=== PATIENT | female | born 1940 | race Caucasian/White ===

== ENCOUNTER 2018-08-18 08:47 | Inpatient (IN) ==
--- NOTE | 2018-08-18 09:16 | Emergency Department Note ---
History of Present Illness General Chief complaint: Head Injury, Minor Stated complaint: FELL AND HIT HEAD LAST WEEK/DOCTOR NGCO CT SCAN Time Seen by Provider: 08/18/18 09:05 History of Present Illness Maximum Pain Intensity: 0 This is a 77-year-old female that presents to the emergency department via private vehicle with complaints of "fell and hit head, last week, Dr. heredia CT scan". The patient notes that one week ago Thursday she was attempting to sit on her bed when she notes that she fell and struck her head against a dresser. She notes that there was some bleeding and felt a little disoriented. She went to see on Thursday and they recommended that she go to the emergency department for a CT scan of her head. She notes that they as well as her have been noting that her facial expressions have not been normal for her and she does not seem quite herself. at bedside verifies the story. She denies any history of CVA or clots. No aspirin use or anticoagulants. She does not feel weak. She does not note any speech troubles or weakness Home Medications Home Medications Medication Instructions Recorded Confirmed Type celecoxib 200 mg PO DAILY 08/18/18 08/18/18 History lorazepam 0.25 mg PO HS 08/18/18 08/18/18 History metoprolol succinate 25 mg PO BID 08/18/18 08/18/18 History omeprazole 40 mg PO DAILY 08/18/18 08/18/18 History simvastatin 10 mg PO DAILY 08/18/18 08/18/18 History venlafaxine 75 mg PO DAILY 08/18/18 08/18/18 History Allergies Allergy/AdvReac Type Severity Reaction Status Date / Time alcohol Allergy Unknown Unverified 08/18/18 10:16 meperidine [From Demerol] Allergy Unknown Unverified 08/18/18 10:16 ondansetron [From Zofran] Allergy Hives Unverified 08/18/18 10:16 Past Med/Surg History Medical History HTN (hypertension) (Chronic) HLD (hyperlipidemia) (Chronic) History of breast cancer (Chronic) History of colon cancer (Chronic) History of rectal cancer (Chronic) Surgical History History of resection of rectum (Chronic) History of colostomy (Chronic) History of colectomy (Chronic) History of left mastectomy (Chronic) Family History Mother Leukemia Father Muscle disease Brother Hx of CABG Coronary heart disease Social History Communication Ability: Effective Human Resources Executive Assistant Required: Yes Beliefs That Will Affect Care: None marital status: Current Living Situation: Spouse current occupational status: retired Other Information That Helps Us Care for You: Yes (Rectal, colon, breast cancer) Feels Safe at Home: Yes Smoking Status: Never smoker Hx Alcohol Use: No Hx Substance Use: No Review of Systems A total of 10 systems reviewed and were otherwise negative Physical Exam Vital Signs Vital Signs - 24 hr 08/18/18 08:51 08/18/18 10:16 08/18/18 12:00 Temperature 36.4 C L Temperature Source Oral Sepsis Recent Fever Within 48 Hours No Sepsis New/Unexplained Change in Mental Status No Sepsis Action Taken by Nursing No Action Required Pulse Rate 73 Pulse Rate [Finger] 70 70 Respiratory Rate 18 19 18 Respiratory Depth Normal Blood Pressure 157/97 H Blood Pressure [Right Arm] 162/95 H 162/95 H Blood Pressure Mean 117 Blood Pressure Mean [Right Arm] 117 117 Pulse Oximetry 97 96 96 Oxygen Delivery Method Room Air Room Air Room Air 08/18/18 14:01 08/18/18 14:22 Temperature Temperature Source Sepsis Recent Fever Within 48 Hours Sepsis New/Unexplained Change in Mental Status Sepsis Action Taken by Nursing Pulse Rate Pulse Rate [Finger] 73 Respiratory Rate 19 Respiratory Depth Blood Pressure Blood Pressure [Right Arm] 184/103 H 185/118 H Blood Pressure Mean Blood Pressure Mean [Right Arm] 130 140 Pulse Oximetry 97 Oxygen Delivery Method Room Air VITAL SIGNS - Vital signs and nursing notes were reviewed. Hypertensive otherwise stable. GENERAL - 77-year-old female appearing her stated age who is in no acute distress. Communicates well with provider and answers questions appropriately. SKIN - Without rashes. HEAD - NC/AT. EYES - PERRL with EOMI bilaterally. Sclera anicteric. EARS - No deformities of external structures noted on gross examination bilaterally. External auditory canals without discharge or otorrhea. Tympanic membranes pearly agustin without retraction or bulging. No fluid or purulent material visualized behind the TM. Handle of malleus, umbo, cone of light, pars tensa/flaccid all easily visualized. NOSE - Midline and without cyanosis. No epistaxis or purulent drainage noted. Septum midline without deviation or septal hematoma noted. MOUTH/OROPHARYNX - Without perioral cyanosis. Buccal mucosa pink and moist and without leukoplakia. Tongue midline with equal elevation of palate bilaterally. No tonsillar hypertrophy, erythema, or exudates noted. Fair dentition noted. NECK - Neck with FROM. Supple to palpation. No lymphadenopathy noted. No nuchal rigidity. LUNGS - Chest wall symmetric without accessory muscle use, intercostals retractions, or central cyanosis. Normal vesicular breath sounds CTA B/L. No whe ezes, rales, or rhonchi appreciated. CARDIAC - RRR with S1/S2. No murmur, rubs, or gallops appreciated. ABDOMEN - Abdominal contour normal without pulsations or visible masses. BS normoactive all four quadrants. No tenderness, palpable masses, hepatosplenomegaly, or ascites noted. EXTREMITIES - No clubbing or peripheral cyanosis. No pretibial edema present. +5/5 strength noted in UE/LE bilaterally. NEUROLOGIC - Cranial nerves II through XII grossly intact. Sensory intact to light touch throughout. Patellar reflexes +2/4. PSYCH - A&Ox3 and cooperates fully with examiner. Pt is very pleasant and interacts well with examiner. Medical Decision Making Laboratory Data Result diagrams: 08/18/18 09:30 08/18/18 09:30 Lab Results 08/18/18 08/18/18 08/18/18 Range/Units 09:30 09:30 09:30 WBC 5.74 (4.8-10.8) K/uL RBC 4.53 (4.2-5.4) M/uL Hgb 13.4 (12.0-16.0) g/dL Hct 39.1 (37-47) % MCV 86.3 (80-100) fL MCH 29.6 (25-34) pg MCHC 34.3 (32-36) g/dL RDW Std Deviation 41.2 (36.4-46.3) fL RDW Coeff of Santiago 13.0 (11.5-14.5) % Plt Count 189 (130-400) K/uL MPV 9.5 (7.4-10.4) fL Immature Gran % (Auto) 0.3 % Neut % (Auto) 52.7 % Lymph % (Auto) 37.3 % [place] % (Auto) 7.1 % Eos % (Auto) 2.1 % Baso % (Auto) 0.5 % Immature Gran # (Auto) 0.02 (0.00-0.02) K/uL Neut # (Auto) 3.02 (1.4-6.5) K/uL Lymph # (Auto) 2.14 (1.2-3.4) K/uL [place] # (Auto) 0.41 (0.11-0.59) K/uL Eos # (Auto) 0.12 (0-0.5) K/uL Baso # (Auto) 0.03 (0-0.2) K/uL PT 10.3 (9.0-12.0) Seconds INR 1.0 (0.9-1.1) APTT 23.1 (21.0-31.0) Seconds PTT Ratio 0.9 Sodium 140 (136-145) mmol/L Potassium 4.1 (3.5-5.1) mmol/L Chloride 107 (98-107) mmol/L Carbon Dioxide 29 (21-32) mmol/L Anion Gap 4.0 (3-11) BUN 28 H (7-18) mg/dl Creatinine 1.15 (0.6-1.2) mg/dl Est Cr Clr Drug Dosing 38.1 ml/min Est GFR ( Amer) 53.5 Est GFR (Non-Af Amer) 46.2 BUN/Creatinine Ratio 24.4 H (10-20) Glucose 108 H (70-99) mg/dl Calcium 8.6 (8.5-10.1) mg/dl Magnesium 2.1 (1.8-2.4) mg/dl Total Bilirubin 0.3 (0.2-1) mg/dl AST 15 (15-37) U/L ALT 20 (12-78) U/L Alkaline Phosphatase 63 (45-117) U/L Troponin I < 0.015 (0-0.045) ng/ml Total Protein 7.8 (6.4-8.2) gm/dl Albumin 3.7 (3.4-5.0) gm/dl Globulin 4.1 H (2.5-4.0) gm/dl Albumin/Globulin Ratio 0.9 (0.9-2) Imaging Data Radiologist's Impression: CT head/brain wo con CLINICAL HISTORY: 77 years-old Female with Fall, head trauma. ?Facial expression change. Acute post traumatic head injury TECHNIQUE: Multiple axial CT images of the head were obtained without contrast. A dose lowering technique was utilized adhering to the principles of ALARA. CT DOSE: 537.48 mGy.cm COMPARISON: None. FINDINGS: No acute intracranial hemorrhage, midline shift, intracranial mass, hydrocephalus, territorial ischemia or abnormal extra-axial collection. Age- related involutional changes with ex vacuo ventriculomegaly. Moderate white matter hypodensities are suggestive of chronic microvascular ischemic changes. Cerebral vascular calcifications are noted. Ill-defined 7 mm hypodensity about the cramer radiata about the left frontal lobe. The calvarium is intact. The paranasal sinuses, mastoid air cells, and middle ear cavities are clear. IMPRESSION: 1. No acute intracranial hemorrhage, midline shift or territorial infarct. 2. Age-related involutional changes with chronic microvascular ischemic changes. Ill-defined periventricular white matter hypodensities are also likely secondary to chronic microvascular ischemic changes. Small subcentimeter age-indeterminate lacunar infarctions considered less likely however would be difficult to exclude. Correlate with prior imaging. The above report was generated using voice recognition software. It may contain grammatical, syntax or spelling errors. Electronically signed by: Jesu Pool M.D. 08/18/2018 10:27 AM MDM Narrative Patient was seen and evaluated as above in room A04. Review was performed of nursing notes and vital signs. After obtaining a thorough history and physical examination the above work up was performed. She presents to us today status post fall that occurred about a week ago. Since that time she has exhibited behavior which the and the doctor who evaluated her 2 days ago noted were abnormal. It appears that this was facial expression. The is not able to pinpoint exactly what it appears that is different but notes that she does not seem herself. On examination there are no deficits and she appears well. IV access was established. There is no leukocytosis or concerning anemia. No emergent metabolic process. She does appear to be slightly dehydrated with a creatinine of 1.15 and BUN at 28. Patient's troponin is negative. A bedside EKG was performed and reveals normal sinus rhythm, rate of 69 bpm. There is no evidence of ID on this examination. A CT scan of the head was performed with results as above. Although the patient's symptoms could certainly be from that of a concussion from striking her head there are questionable age-indeterminate lacunar infarcts possibly on the CT scan. Given the patient's symptoms, CT findings at this time benefit versus risk of inpatient versus outpatient management was discussed. The patient initially noted she would like to go home but did ask that I talk to her family doctor, who notes she is her cancer doctor to see if the testing could be done in the outpatient setting if they feel comfortable doing so. I then spoke with Dr. Grider. I expressed how I felt that although at this time there is no solid evidence she experienced a stroke or TIA that given her presentation and findings it may be reasonable for her to stay. He was in agreement. We discussed how although the testing could be done in the outpatient setting, there could be significant delays in obtaining this whereas this could be done in the inpatient setting in a more timely manner which given the patient's symptoms and presentation would be of great benefit. This was expressed to the patient and she notes that she would like to be admitted. I believe this is reasonable. I discussed this with the hospitalist team. Case was discussed with the attending physician. I attest that I have personally reviewed the patient medication list. I attest that I have reviewed the patient's blood pressure and it was found to be elevated, and she will be admitted for further evaluation and management of her presenting symptoms. GCS: 15 In the evaluation and treatment of this patient, the following differential diagnoses were considered: Concussion, Contrecoup Injury, Brain Tumor, Depression, Encephalitis, Hypothyroidism, Meningitis, CVA, TIA, Migraine, Cluster Headache, Intracranial Abnormality, Intracranial Hemorrhage, Subdural Hematoma, Subarachnoid Hemorrhage, Hydrocephalus, among others. Impression & Plan Closed head injury, Fall, Abnormal CT of the head Discharge Plan Visit Data *Final* Discharge Date/Time: 08/18/18 14:40 Chief Complaint: Head Injury, Minor Stated Complaint: FELL AND HIT HEAD LAST WEEK/DOCTOR WANTS CT SCAN ED Provider: Aubrey Santiago ED Midlevel Provider: Bamat,Popeye W Discharge Problem: Closed head injury, Fall, Abnormal CT of the head Patient Disposition: Admitted As Inpatient Condition: Good Discharge Instructions Interventions: ED Discharge Assessment Last Done: 08/18/18 14:40
[2018-08-18 09:43] LABS: Basophils # (auto) 0.03 K/uL (0-0.2); Basophils % (auto) 0.5 %; Eosinophils # (auto) 0.12 K/uL (0-0.5); Eosinophils % (auto) 2.1 %; Hematocrit (blood only) 39.1 % (37-47); Hemoglobin 13.4 g/dL (12.0-16.0); Immature Granulocytes # (auto) 0.02 K/uL (0.00-0.02); Immature Granulocytes % (auto) 0.3 %; Lymphocytes # (auto) 2.14 K/uL (1.2-3.4); Lymphocytes % (auto) 37.3 %; Mean Corpuscular Hgb Conc 34.3 g/dL (32-36); Mean Corpuscular Volume 86.3 fL (80-100); Mean Platelet Volume 9.5 fL (7.4-10.4); Monocytes # (auto) 0.41 K/uL (0.11-0.59); Monocytes % (auto) 7.1 %; Neutrophils # (auto) 3.02 K/uL (1.4-6.5); Neutrophils % (auto) 52.7 %; Platelet Count 189 K/uL (130-400); RDW Standard Deviation 41.2 fL (36.4-46.3); Red Blood Count 4.53 M/uL (4.2-5.4); White Blood Count 5.74 K/uL (4.8-10.8)
[2018-08-18 09:58] LABS: Partial Thromboplastin Ratio 0.9; Partial Thromboplastin Time 23.1 Seconds (21.0-31.0); Prothrombin Time 10.3 Seconds (9.0-12.0)
[2018-08-18 10:04] LABS: Alanine Aminotransferase 20 U/L (12-78); Albumin Level 3.7 gm/dl (3.4-5.0); Aspartate Aminotransferase 15 U/L (15-37); BUN Creatinine Ratio 24.4 (10-20); Blood Urea Nitrogen 28 mg/dl (7-18); Calcium 8.6 mg/dl (8.5-10.1); Carbon Dioxide 29 mmol/L (21-32); Chloride 107 mmol/L (98-107); Creatinine Clr Calc Pharmacy 38.1 ml/min; Est GFR (African American) 53.5; Est GFR (Non-African American) 46.2; Glucose 108 mg/dl (70-99); Magnesium 2.1 mg/dl (1.8-2.4); Potassium 4.1 mmol/L (3.5-5.1); Sodium 140 mmol/L (136-145)
[2018-08-18 10:09] LABS: Albumin Globulin Ratio 0.9 (0.9-2); Alkaline Phosphatase 63 U/L (45-117); Bilirubin,Total 0.3 mg/dl (0.2-1); Globulin 4.1 gm/dl (2.5-4.0); Total Protein 7.8 gm/dl (6.4-8.2); Troponin I < 0.015 ng/ml (0-0.045)
--- NOTE | 2018-08-18 10:28 | CT Scan Report ---
CT head/brain wo con CLINICAL HISTORY: 77 years-old Female with Fall, head trauma. ?Facial expression change. Acute post traumatic head injury TECHNIQUE: Multiple axial CT images of the head were obtained without contrast. A dose lowering tech nique was utilized adhering to the principles of ALARA. CT DOSE: 537.48 mGy.cm COMPARISON: None. FINDINGS: No acute intracranial hemorrhage, midline shift, intracranial mass, hydrocephalus, territorial ischem ia or abnormal extra-axial collection. Age-related involutional changes with ex vacuo ventriculomegal y. Moderate white matter hypodensities are suggestive of chronic microvascular ischemic changes. Cere bral vascular calcifications are noted. Ill-defined 7 mm hypodensity about the cramer radiata about t he left frontal lobe. The calvarium is intact. The paranasal sinuses, mastoid air cells, and middle ear cavities are clear . IMPRESSION: 1. No acute intracranial hemorrhage, midline shift or territorial infarct. 2. Age-related involutional changes with chronic microvascular ischemic changes. Ill-defined perivent ricular white matter hypodensities are also likely secondary to chronic microvascular ischemic change s. Small subcentimeter age-indeterminate lacunar infarctions considered less likely however would be difficult to exclude. Correlate with prior imaging. The above report was generated using voice recognition software. It may contain grammatical, syntax o r spelling errors. Electronically signed by: Jesu Pool M.D. 08/18/2018 10:27 AM
--- NOTE | 2018-08-18 12:15 | Emergency Department Note ---
ED Visit Note Patient was seen by our PA/SEAFOOD PROCESS WORKER. I was involved in the patient's care and did evaluate the patient myself. I was involved in the care throughout the ER stay. The patient presents with concern for head trauma, she has had a slight change in mentation. Workup here showed some older strokelike findings on CT, laboratory testing was unrevealing. The patient did not have any focal neurologic deficits. A hospital stay for further workup was suggested. The patient is considering hospitalization versus going home and seeing her doctors office. She understands that going home is slightly more risky, she feels comfortable though that her family doctors office can perform all the needed test in a timely fashion. We await her decision. .
--- NOTE | 2018-08-18 14:16 | History & Physical Report ---
Date of Service August 18, 2018 Assessment & Plan (1) Fall: (2) Recent head trauma: This is a 77-year-old female who has a significant past medical history of HTN, HLD, depression, anxiety, history of left breast CA status post simple mastectomy, history of colon CA status post colectomy and colostomy, history of rectosigmoid CA status post resection who presents to [facility] status post mechanical fall 10 days ago. She did not lose consciousness or pass out. Denies headache, n/v, change in vision, phono/photophobia. CT head done in ED revealed: Age-related involutional changes with chronic microvascular ischemic changes. Ill-defined periventricular white matter hypodensities are also likely secondary to chronic microvascular ischemic changes. Small subcentimeter age-indeterminate lacunar infarctions considered less likely however would be difficult to exclude. Ill-defined 7 mm hypodensity about the cramer radiata about the left frontal lobe. Correlate with prior imaging. CT scan reviewed from 12/2016 which also revealed age related white mater changes similar to above but ill defined density -admit to med/surg telemetry for further imaging -MRI w and w/o contrast to eval for ill defined hypodensity -consult neurology for further evaluation -PT/OT -lipid panel, a1c in a.m. (3) HTN (hypertension): -continue metoprolol, blood pressure elevated in ED (4) HLD (hyperlipidemia): -continue statin (5) Depression: -continue effexor (6) DVT prophylaxis: -SCDs Disposition: D/C to home when able Follow up: PCP Dr. Grider of [place] upon discharge Pt was seen and examined in collaboration with Dr. Licona, please see addendum Starting 08/19/18 pt will be under the care of Dr. Vasquez History of Present Illness Chief Complaint: S/p Mechanical and hit head x 10 days ago. Primary Care Provider: Dennis Grider This is a 77-year-old female who has a significant past medical history of HTN, HLD, depression, anxiety, history of left breast CA status post simple mastectomy, history of colon CA status post colectomy and colostomy, history of rectosigmoid CA status post resection who presents to [facility] status post mechanical fall 10 days ago. is at bedside. Patient states she was going to get in bed, rolled over and fell out of bed hitting head on corner of a dresser. Patient did have minor laceration to head. She was able to get up from fall with the help of her . She denies any falls in previous years or instability. Denies loss of consciousness or passing out. Am bulates without assist device and walks 1-2 miles with 3 times a week. She currently denies any headache, lightheadedness, dizziness, syncope, change in vision, change in hearing, photophobia or photophobia, nausea, vomiting, diarrhea, change in bowel or urinary habits. Further denies any chest pain or shortness of breath, palpitations. Appetite has been normal. She was essentially brought to ED and recommendation of provider secondary to feeling like she has been, "foggy." While in ED CT scan of head was performed which ruled out any acute hemorrhage, did reveal age related involutional changes, chronic small vessel disease, 7 mm hypodensity in left frontal lobe. Given her age and history of cancer it was recommended she be admitted for further imaging and evaluation. Allergies Allergy/AdvReac Type Severity Reaction Status Date / Time alcohol Allergy Unknown Unverified 08/18/18 10:16 meperidine [From Demerol] Allergy Unknown Unverified 08/18/18 10:16 ondansetron [From Zofran] Allergy Hives Unverified 08/18/18 10:16 Home Medications Home Medications Medication Instructions Recorded Confirmed Type celecoxib 200 mg PO DAILY 08/18/18 08/18/18 History lorazepam 0.25 mg PO HS 08/18/18 08/18/18 History metoprolol succinate 25 mg PO BID 08/18/18 08/18/18 History omeprazole 40 mg PO DAILY 08/18/18 08/18/18 History simvastatin 10 mg PO DAILY 08/18/18 08/18/18 History venlafaxine 75 mg PO DAILY 08/18/18 08/18/18 History Past Med/Surg History Medical History HTN (hypertension) (Chronic) HLD (hyperlipidemia) (Chronic) History of breast cancer (Chronic) History of colon cancer (Chronic) History of rectal cancer (Chronic) Surgical History History of resection of rectum (Chronic) History of colostomy (Chronic) History of colectomy (Chronic) History of left mastectomy (Chronic) Family History Mother Leukemia Father Muscle disease Brother Hx of CABG Coronary heart disease Social History Communication Ability: Effective Order Analyst Required: Yes Beliefs That Will Affect Care: None marital status: Current Living Situation: Spouse current occupational status: retired Other Information That Helps Us Care for You: Yes (Rectal, colon, breast cancer) Feels Safe at Home: Yes Smoking Status: Never smoker Hx Alcohol Use: No Hx Substance Use: No Review of Systems All systems reviewed & are unremarkable except as noted in HPI & below Physical Exam Vital Signs (Past 24 Hours): Last Vital Signs Temp 36.4 C L 08/18/18 08:51 Pulse 73 08/18/18 14:01 Resp 19 08/18/18 14:01 BP 184/103 H 08/18/18 14:01 Pulse Ox 97 08/18/18 14:01 Physical Exam: Gen: WD/WN, F, NAD, sitting up in bed, pleasant, conversing easily Head: Normocephalic, Atraumatic Eyes: Sclera normal, no conjunctival injection, PERRLA, EOMI ENT: Gross hearing intact, normal pharynx, mucous membranes moist Neck: supple, no adenopathy, No JVD, no bruit, Resp: Clear to auscultation b/l, no wheeze, rales, rhonchi. Normal insp/exp effort, no accessory muscle use CV: Regular rate, regular rhythm, no murmur, rub, gallop, or ectopy Abd: +BS x 4, soft, nontender, nondistended Musculoskeletal: moves extremities active rom x 4, strength intact, good middle school history teacher strength Extremities: No edema bilaterally Skin: warm, moist, no rash, negative turgor, cap refill < 2sec Neuro: Alert and oriented x 3, speech normal, good mood/affect, cran nerve 2-12 intact grossly : deferred Results & Data Laboratory Results 08/18/18 08/18/18 08/18/18 Range/Units 09:30 09:30 09:30 WBC 5.74 (4.8-10.8) K/uL RBC 4.53 (4.2-5.4) M/uL Hgb 13.4 (12.0-16.0) g/dL Hct 39.1 (37-47) % MCV 86.3 (80-100) fL MCH 29.6 (25-34) pg MCHC 34.3 (32-36) g/dL RDW Std Deviation 41.2 (36.4-46.3) fL RDW Coeff of Santiago 13.0 (11.5-14.5) % Plt Count 189 (130-400) K/uL MPV 9.5 (7.4-10.4) fL Immature Gran % (Auto) 0.3 % Neut % (Auto) 52.7 % Lymph % (Auto) 37.3 % Sanders % (Auto) 7.1 % Eos % (Auto) 2.1 % Baso % (Auto) 0.5 % Immature Gran # (Auto) 0.02 (0.00-0.02) K/uL Neut # (Auto) 3.02 (1.4-6.5) K/uL Lymph # (Auto) 2.14 (1.2-3.4) K/uL Sanders # (Auto) 0.41 (0.11-0.59) K/uL Eos # (Auto) 0.12 (0-0.5) K/uL Baso # (Auto) 0.03 (0-0.2) K/uL PT 10.3 (9.0-12.0) Seconds INR 1.0 (0.9-1.1) APTT 23.1 (21.0-31.0) Seconds PTT Ratio 0.9 Sodium 140 (136-145) mmol/L Potassium 4.1 (3.5-5.1) mmol/L Chloride 107 (98-107) mmol/L Carbon Dioxide 29 (21-32) mmol/L Anion Gap 4.0 (3-11) BUN 28 H (7-18) mg/dl Creatinine 1.15 (0.6-1.2) mg/dl Est Cr Clr Drug Dosing 38.1 ml/min Est GFR ( Amer) 53.5 Est GFR (Non-Af Amer) 46.2 BUN/Creatinine Ratio 24.4 H (10-20) Glucose 108 H (70-99) mg/dl Calcium 8.6 (8.5-10.1) mg/dl Magnesium 2.1 (1.8-2.4) mg/dl Total Bilirubin 0.3 (0.2-1) mg/dl AST 15 (15-37) U/L ALT 20 (12-78) U/L Alkaline Phosphatase 63 (45-117) U/L Troponin I < 0.015 (0-0.045) ng/ml Total Protein 7.8 (6.4-8.2) gm/dl Albumin 3.7 (3.4-5.0) gm/dl Globulin 4.1 H (2.5-4.0) gm/dl Albumin/Globulin Ratio 0.9 (0.9-2) Diagnostic Findings Head CT: FINDINGS: No acute intracranial hemorrhage, midline shift, intracranial mass, hydrocephalus, territorial ischemia or abnormal extra-axial collection. Age- related involutional changes with ex vacuo ventriculomegaly. Moderate white matter hypodensities are suggestive of chronic microvascular ischemic changes. Cerebral vascular calcifications are noted. Ill-defined 7 mm hypodensity about the cramer radiata about the left frontal lobe. The calvarium is intact. The paranasal sinuses, mastoid air cells, and middle ear cavities are clear. IMPRESSION: 1. No acute intracranial hemorrhage, midline shift or territorial infarct. 2. Age-related involutional changes with chronic microvascular ischemic changes. Ill-defined periventricular white matter hypodensities are also likely secondary to chronic microvascular ischemic changes. Small subcentimeter age-indeterminate lacunar infarctions considered less likely however would be difficult to exclude. Correlate with prior imaging. Code Status & VTE Plan Code Status Full Code VTE Prophylaxis Plan VTE Prophylaxis will be ordered: Yes Supervising Physician Co-Signing Physician Notes I have seen and examined the patient with physician doctor assistant and agree with the assessment and plan and would like to add that patient with recent head trauma x 1 week. no current focal neurological symptoms on exam but CT head abnormal and in particular of a Ill-defined 7 mm hypodensity about the cramer radiata about the left frontal lobe patient has history of cancer and agree with neurology recommendation to obtain MRI of the brain with and without contrast optimize HLD, HTN LDL <70 ZIO as outpatient if there is evidence of lacunar infarct Patient was admitted by Dr. Licona and physician doctor assistant on 08/18/18. But Neur ology suggested the possibility of doing carotid ultrasound and TTE but would defer to the next hospitalist who will see the patient starting on 08/19/18 depending on the MRI results of the brain. My hospitalist colleague will be Dr. Mohan
[2018-08-18] MEDS ORDERED: ALUMINUM/MAGNESIUM SUSP 30 ML UDC PO PRN (15:48)
[2018-08-18] MEDS ORDERED: MAGNESIUM HYDROXIDE SUSP 30 ML UDC PO PRN (15:48)
[2018-08-18] MEDS ORDERED: POLYETHYLENE (MIRALAX) 17 GM PACK PO PRN (15:48)
[2018-08-18] MEDS ORDERED: ACETAMINOPHEN 325 MG TAB PO PRN (15:48)
--- NOTE | 2018-08-18 19:04 | Neurology Consultation ---
Date of Consultation August 18, 2018 Assessment & Plan (1) Abnormal CT of the head: 1. MRI brain with and without if renal function will allow due to history of CA 2. optimize HLD, HTN LDL <70 3. if not contra indicated aspirin 81 mg 4. TTE, carotid doppler 5. PT/OT speech- no current needs 6. ZIO as outpatient -if supports lacunar infarct further recommendation to follow PT seen and examined, fell sitting on bed 10 d ago without injury 3 d ago noted asymmetry to face brought in to ER today. No headache, no hx of prior neurol sx. In general does not fall. Exam notable for flattened L NLF, otherwise nml. CT head several hypodensities most likely related to small vessel cerebrovascular disease. REc MRI brain with and without to confirm and exclude mets given hx of mult cancers. ANISHA Stearns MD Supervising Physician Co-Signing Physician Notes I have seen and discussed above patient with Dr Annie Stearns, neurology History of Present Illness Reason for Consultation: fall? concussion, CT +hypodensity hx of CA Requesting Physician: Margarita Vasquez DO Attending Physician: Margarita Vasquez DO History of Present Illness Soraya is a 77 year old female with PMH depression, HTN, HLD, L breast CA with resection, colon CA, rectal CA with colostomy. She states 10 days ago she was up to use the bathroom and came back to sit down and missed the edge of the bed and hit the back of her head on the dresser. denies LOC. She then went to her psychologist and she thought she had some left facial droop and encouraged her to go to the ED for evaluation. She is here to day and had a CT head with hypodensity with her history of CA she was admitted for further evaluation with MRI. Her blood pressure on admission was also elevated and currently is 185/118. denies CP, SOB, abdominal pain, one sided weakness, numbness tingling, N, V vision changes, swallowing issues. Allergies Allergy/AdvReac Type Severity Reaction Status Date / Time alcohol Allergy Unknown Unverified 08/18/18 10:16 meperidine [From Demerol] Allergy Unknown Unverified 08/18/18 10:16 ondansetron [From Zofran] Allergy Hives Unverified 08/18/18 10:16 Home Medications Home Medications Medication Instructions Recorded Confirmed Type celecoxib 200 mg PO DAILY 08/18/18 08/18/18 History lorazepam 0.25 mg PO HS 08/18/18 08/18/18 History metoprolol succinate 25 mg PO BID 08/18/18 08/18/18 History omeprazole 40 mg PO DAILY 08/18/18 08/18/18 History simvastatin 10 mg PO DAILY 08/18/18 08/18/18 History venlafaxine 75 mg PO DAILY 08/18/18 08/18/18 History Patient History Medical History HTN (hypertension) (Chronic) HLD (hyperlipidemia) (Chronic) History of breast cancer (Chronic) History of colon cancer (Chronic) History of rectal cancer (Chronic) Surgical History History of resection of rectum (Chronic) History of colostomy (Chronic) History of colectomy (Chronic) History of left mastectomy (Chronic) Family History Mother Leukemia Father Muscle disease Brother Hx of CABG Coronary heart disease Social History Communication Ability: Effective Sales/Marketing Required: Yes Beliefs That Will Affect Care: None marital status: Current Living Situation: Spouse current occupational status: retired Other Information That Helps Us Care for You: Yes (Rectal, colon, breast cancer) Feels Safe at Home: Yes Smoking Status: Never smoker Hx Alcohol Use: No Hx Substance Use: No Physical Exam Vital Signs (Past 24 Hours): Last Vital Signs Temp 36.4 C L 08/18/18 08:51 Pulse 73 08/18/18 14:01 Resp 19 08/18/18 14:01 BP 185/118 H 08/18/18 14:22 Pulse Ox 97 08/18/18 14:01 Physical Exam: Constitutional:appearance nourished, healthy and normal Ears, Nose, Mouth and Throat: mucous membranes moist, no injection and skin normal, eyes normal Cardiovascular: normal S-1 and S-2 and regular rate and rhythm Respiratory: clear to auscultation (CTA) and no rales, ronchi or wheeze Musculoskeletal: no peripheral edema and good distal pulses Skin: no stigmata of neurocutaneous disease noted and normal and intact Eyes: extraocular muscles intact (EOMI) and pupils equal, round and reactive to light (PERRL) gross peripheral bourgeois intact NEUROLOGIC EXAMINATION: Mental status: Alert and interactive Oriented to full date and location Oriented to person Speech fluent with no evidence of aphasia Cranial Nerves eye brows symmetric, nasolabial fold on left flattened Reflexes: Deep tendon reflexes were symmetrical and graded 2/5. Sensory: to light touch cool or vibration intact Coordination: Romberg absent, finger to nose no bi pass, heel to keller intact Gait/Stance: Posture normal. Gait normal: stands with no assistance from bed, tandem gait Motor: Negative for pronator drift of out stretched arms with eyes closed. 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 age related involutional changes, microvascuar disease, small subcentrimeter age indeterminate lacunar infarcts.
[2018-08-18 19:47] LABS: Appearance Urine Clear (Clear); Bacteria Urine Automated Negative (Negative); Bilirubin Urine Negative (Negative); Blood Urine Trace (Negative); Color Urine Yellow; Epithelial Cell Urine Auto >30 /lpf (0-5); Glucose Urine UA Negative (Negative); Ketones Urine Negative (Negative); Leukocyte Esterase Urine Trace (Negative); Nitrite Urine Negative (Negative); Protein Urine Negative (Negative); RBC Urine Automated 0-4 /hpf (0-4); Specific Gravity Urine 1.016 (1.000-1.030); Urobilinogen Urine Negative (Negative)
[2018-08-18] MEDS ORDERED: SIMVASTATIN 10 MG TAB PO SCH (21:00)
[2018-08-18] MEDS: LORazepam 0.5 MG TAB PO SCH (21:35)
[2018-08-18] MEDS: METOPROLOL SUCC 25MG EXT REL TAB PO SCH (21:36)
[2018-08-18] MEDS ORDERED: GADOBUTROL 65ML VIAL IV PRN (22:23)
[2018-08-18] MEDS ORDERED: GADOXETATE DISODIUM IV PRN (22:23)
--- NOTE | 2018-08-18 23:35 | Magnetic Resonance Report ---
MRI OF THE BRAIN WITHOUT AND WITH IV CONTRAST CLINICAL HISTORY: recent head injury, abnormal CT head HISTORY OF COLON AND BREAST CARCINOMA COMPARISON STUDY: Noncontrast head CT dated 08/18/2018 TECHNIQUE: MRI of the brain was performed from the vertex to the skull base utilizing various T1 and T2 weighted sequences. Following the IV administration of 6.5 mL of Gadavist contrast, additional enh anced images were obtained. FINDINGS: Sagittal T1, axial diffusion, proton density and T2 weighted axial, coronal FLAIR, and pre and post a xial T1-weighted images were acquired. These were supplemented with post gadolinium coronal T1 weight ed images. No intra or extra-axial mass lesions are visualized. There is a focus of increased signal in axial diffusion-weighted images involving the left superior b anthony ganglia and centrum semiovale. This demonstrates only equivocal diminished signal on the ADC map . There is corresponding diminished attenuation in this area on the CT scan, and increased T2 signal on the MRI study. This likely represents a subacute infarct. There is no evidence of ventricular dilatation. Proton density T2-weighted and FLAIR images reveal moderately foci of increased T2 signal within the white matter, likely on a small vessel basis. There are no abnormal flow voids. There is no evidence of pathologic enhancement. IMPRESSION: 1. Signal abnormality and diffusion weighted images involving the left superior basal ganglia and rolf trum semiovale. The findings are felt to represent a subacute infarct 2. No evidence of intracranial mass 3. Moderate white matter disease likely a small vessel ischemic basis Electronically signed by: Davey Glass M.D. 08/18/2018 11:33 PM
[2018-08-19] MEDS: PANTOprazole 40 MG TAB PO SCH (08:11)
[2018-08-19] MEDS: METOPROLOL SUCC 25MG EXT REL TAB PO SCH ×2 (08:12→21:24)
[2018-08-19] MEDS: VENLAFAXINE HCL XR 75 MG CAPXR PO SCH (08:12)
[2018-08-19] MEDS ORDERED: SIMVASTATIN 10 MG TAB PO SCH (09:00)
[2018-08-19] MEDS: ATORVASTATIN 40 MG TAB PO SCH (09:30)
[2018-08-19] MEDS: ASPIRIN 81 MG ECTAB PO SCH (09:30)
--- NOTE | 2018-08-19 14:16 | Hospitalist Progress Note ---
Date of Service August 19, 2018 Assessment & Plan (1) Stroke: Subacute stroke seen on MRI. This may be more related to his strokelike symptoms postoperatively back in May as described above. Overnight telemetry reveals sinus rhythm. Aspirin and Plavix will be continued. Carotid ultrasound and echo are pending. 14 days IO patch as outpatient pending. Will switch Zocor to Lipitor 40. Neurology to see this afternoon. (2) Closed head injury: Patient describing mental fog post traumatic head injury 10 days ago. This is more consistent with a concussion and is less likely to do with her current subacute stroke seen on MRI. No focal deficits are seen on exam today. Continue supportive care measures. (3) History of breast cancer: (4) History of colon cancer: (5) History of rectal cancer: (6) HTN (hypertension): Blood pressure is elevated, allow permissive hypertension in setting of age-indeterminate stroke. Will further control if persistently elevated beyond 48 hours. Of note, patient takes Toprol-XL 25 p.o. twice daily for reported hypertension. Would recommend an alternative antihypertensive to this as beta- blockers or fourth line antihypertensives. We will continue to monitor (7) HLD (hyperlipidemia): Zocor 10 will be switched to Lipitor 40 in setting of stroke. (8) Depression: Stable mood, continue Effexor ER and Ativan for sleep in the evenings. (9) DVT prophylaxis: Lovenox Full code Disposition-pending stroke workup and neurology recommendations. Margarita Vasquez DO [facility] Hospitalist Subjective 77-year-old female presented with a mental fog for the past 10 days. and recent outpatient provider reported some facial asymmetry that was abnormal for her. In the ER, neurology exam was unremarkable. A CT of the head revealed no acute intracranial hemorrhage, midline shift or territorial infarct. Age- related involutional changes with chronic microvascular ischemic changes were noted. Ill-defined periventricular white matter hypodensities are also likely secondary to chronic microvascular ischemic change, however, small subcentimeter age-indeterminate lacunar infarctions are difficult to exclude. MRI of the brain was ordered and she was admitted to the Hospitalist service. The MRI revealed a subacute infarct in the left superior basal ganglia and centrum semiovale. There was no evidence of intracranial mass and there was moderate white matter disease present likely a small vessel ischemic basis. Historically the patient reports acute stroke-like symptoms occurring postoperatively several days after a parastomal hernia repair in May 2018. She specifically reports expressive aphasia for a full day that was associated with a headache. This spontaneously resolved by the end of the weekend and she did not pursue medical consultation. She then hit her head traumatically 10 days prior to arrival and subsequently describes a mental fog with symptoms consistent with a concussion. She currently has no gross focal neurologic deficit. She is ambulating about the room and has felt no change since admission. She is eating without difficulty. She is alert and oriented x3. Neurology to see her this afternoon. Physical Exam Vital Signs (Past 24 Hours): Last Vital Signs Temp 37.0 C 08/19/18 11:46 Pulse 71 08/19/18 11:46 Resp 18 08/19/18 11:46 BP 163/92 H 08/19/18 11:46 Pulse Ox 94 08/19/18 11:46 CONSTITUTIONAL: WNWD, vitals as above, generally well-appearing EYES: EOMI bilaterally, PERRL, normal conjuctivae, no scleral icterus ENT: oropharynx clear,MMM RESPIRATORY: clear to auscultation bilaterally, no crackles, rales or wheezes, normal respiratory effort CARDIOVASCULAR: regular rate and rhythm, S1 and 2 heard without murmurs, gallops or rubs, no JVD, no peripheral edema GASTROINTESTINAL: normal bowel sounds, soft, nontender, nondistended MUSCULOSKELETAL: strength 5/5 throughout, head is normocephalic and atraumatic SKIN: warm and dry NEUROLOGIC: patellar DTR 2+ bilat. Brachioradialis and Achilles refelx 2+ bilaterally, PERRL, EOMI, no overt facial palsy, no dysarthria. CN 2-12 grossly intact, no sensory deficit, normal cognition, normal speech, no tremor. Finger to nose intact. PSYCHIATRIC: alert cooperative and oriented to person, place and time. Results & Data Laboratory Results Urine 08/18/18 Range/Units 19:15 Urine Color Yellow Urine Appearance Clear (Clear) Urine pH 7.0 (4.5-7.5) Ur Specific [place] 1.016 (1.000-1.030) Urine Protein Negative (Negative) Urine Glucose (UA) Negative (Negative) Medications Administered Current Inpatient Medications Acetaminophen (Tylenol) 650 mg PO Q4H PRN PRN Reason: Pain or Fever Stop: 09/17/18 15:47 Al Hydrox/Mg Hydrox/Simethicone (Maalox) 15 ml PO Q4H PRN PRN Reason: Dyspepsia Stop: 09/17/18 15:47 Aspirin ([facility]ab) [facility] Stop: 09/18/18 08:59 Last Admin: 08/19/18 09:30 Dose: 81 mg Documented by: Atorvastatin Calcium (Lipitor) 40 [facility] [place] Stop: 09/18/18 08:59 Last Admin: 08/19/18 09:30 Dose: 40 mg Documented by: Clopidogrel [facility]ate ([facility]ix) [facility] Stop: 09/18/18 14:29 Gadobutrol (Gadavist 65ml) 6.5 ml IV ONCE PRN PRN Reason: Interaction Checking Stop: 08/22/18 22:22 Last Admin: 08/18/18 22:24 Dose: 6.5 ml Documented by: Gadoxetate Disodium (Eovist) 6.5 ml IV ONCE PRN PRN Reason: Interaction Checking Stop: 08/22/18 22:22 Lorazepam (Ativan) 0.25 mg PO HS [facility] Stop: 09/17/18 20:59 Last Admin: 08/18/18 21:35 Dose: 0.25 mg Documented by: Magnesium Hydroxide (Milk Of Magnesia) 30 ml PO Q12H PRN PRN Reason: Constipation Stop: 09/17/18 15:47 Metoprolol Succinate (Toprol Xl) 25 mg PO BID [facility] Stop: 09/17/18 20:59 Last Admin: 08/19/18 08:12 Dose: 25 mg Documented by: Pantoprazole Sodium (Protonix) 40 mg PO DAILY [facility] Stop: 09/18/18 08:59 Last Admin: 08/19/18 08:11 Dose: 40 mg Documented by: Polyethylene Glycol (Miralax Powder Packet) 17 gm PO DAILY PRN PRN Reason: Constipation Stop: 09/17/18 15:47 Venlafaxine HCl (Effexor Extended Release) 75 mg PO DAILY [facility] Stop: 09/18/18 08:59 Last Admin: 08/19/18 08:12 Dose: 75 mg Documented by:
--- NOTE | 2018-08-19 14:22 | Neurology Progress Note ---
Date of Service August 19, 2018 Assessment & Plan (1) Abnormal CT of the head: 1. MRI brain subacute infarct which may account for event 10 days ago 2. optimize HLD, HTN LDL <70 3. if not contra indicated aspirin 81 mg and add plavix 75 mg daily x 21 days then stop plavix and continue on aspirin 81 mg 4. TTE, carotid doppler ordered 5. PT/OT speech- no current needs 6. ZIO as outpatient 7. zocor switched to lipitor follow up in neurology 4-6 weeks after discharge Annie Goldman PAC schedule Supervising Physician Co-Signing Physician Notes I have seen and discussed above patient with Dr Annie Stearns, neurology Pt seen. Presumed asx L basal ganglia infarct (query relationship to one time fall). Rec ibarra as delineated above. Although likely small vessel and not cardioembolic, rec Zio as outpt. ANISHA Stearns MD Vivian Lira is a 77 year old female with PMH depression, HTN, HLD, L breast CA with resection, colon CA, rectal CA with colostomy. She states 10 days ago she was up to use the bathroom and came back to sit down and missed the edge of the bed and hit the back of her head on the dresser. denies LOC. She then went to her psychologist and she thought she had some left facial droop and encouraged her to go to the ED for evaluation. She is here to day and had a CT head with hypodensity with her history of CA she was admitted for further evaluation with MRI. Her blood pressure on admission was also elevated and currently is 185/118. Today she is doing well and is anxious to go home. denies CP, SOB, abdominal pain, one sided weakness, numbness tingling, N, V vision changes, swallowing issues. Physical Exam Vital Signs (Past 24 Hours): Last Vital Signs Temp 37.0 C 08/19/18 11:46 Pulse 71 08/19/18 11:46 Resp 18 08/19/18 11:46 BP 163/92 H 08/19/18 11:46 Pulse Ox 94 08/19/18 11:46 Gen: alert NAD lungs CTA CV RRR abdomen - colostomy bag in place no drainage strength biceps triceps hand still operator gin bilaterally 5/5, hip flex 5/5 bilaterally tandem gait steady good arm swing Results & Data Laboratory Results Abnormal lab results 08/18/18 Range/Units 19:15 Urine Blood Trace H (Negative) Ur Leukocyte Esterase Trace H (Negative) U Epithel Cells (Auto) >30 H (0-5) /lpf Diagnostic Findings MRI brain- Signal abnormality and diffusion weighted images involving the left superior basal ganglia and centrum semiovale. The findings are felt to represent a subacute infarct No evidence of intracranial mass Moderate white matter disease likely a small vessel ischemic basis
--- NOTE | 2018-08-19 15:38 | Ultrasound Report ---
ULTRASOUND OF THE CAROTID ARTERIES CLINICAL HISTORY: stroke COMPARISON STUDY: None. TECHNIQUE: Real-time, grayscale, and color Doppler sonography of the carotid arteries was performed. Imaging reviewed in the transverse and longitudinal planes. NASCET criteria was utilized for stenosis calcification. FINDINGS: There is mild atherosclerotic plaque present . The peak systolic velocity within the right internal carotid artery is 45 cm/sec. The systolic velocity ratio of right internal to common carotid artery is 0.8. The peak systolic velocity within the left internal carotid artery is 75 cm/sec. The systolic velocity ratio left internal to common carotid artery is 2. Antegrade flow is seen in the vertebral arteries. The external carotid arteries are patent. The study was difficult from a technical standpoint due to high bifurcations. IMPRESSION: No evidence of hemodynamically significant carotid stenosis. Electronically signed by: Davey Glass M.D. 08/19/2018 3:37 PM
[2018-08-19] MEDS: CLOPIDOGREL BISULFATE 75 MG TAB PO SCH (16:49)
[2018-08-19] MEDS: LORazepam 0.5 MG TAB PO SCH (21:28)
[2018-08-20] MEDS: METOPROLOL SUCC 25MG EXT REL TAB PO SCH (08:06)
[2018-08-20] MEDS: ATORVASTATIN 40 MG TAB PO SCH (08:06)
[2018-08-20] MEDS: VENLAFAXINE HCL XR 75 MG CAPXR PO SCH (08:06)
[2018-08-20] MEDS: PANTOprazole 40 MG TAB PO SCH (08:06)
[2018-08-20] MEDS: CLOPIDOGREL BISULFATE 75 MG TAB PO SCH (08:07)
[2018-08-20] MEDS: ASPIRIN 81 MG ECTAB PO SCH (08:07)
[2018-08-20] MEDS ORDERED: ENOXAPARIN INJ 40 MG/0.4 ML SYR SQ SCH (09:00)
--- NOTE | 2018-08-20 10:08 | Discharge Summary ---
Date of Service August 20, 2018 Admission HPI Per Admitting Provider This is a 77-year-old female who has a significant past medical history of HTN, HLD, depression, anxiety, history of left breast CA status post simple mastectomy, history of colon CA status post colectomy and colostomy, history of rectosigmoid CA status post resection who presents to [facility] status post mechanical fall 10 days ago. is at bedside. Patient states she was going to get in bed, rolled over and fell out of bed hitting head on corner of a dresser. Patient did have minor laceration to head. She was able to get up from fall with the help of her . She denies any falls in previous years or instability. Denies loss of consciousness or passing out. Ambulates without assist device and walks 1-2 miles with 3 times a week. She currently denies any headache, lightheadedness, dizziness, syncope, change in vision, change in hearing, photophobia or photophobia, nausea, vomiting, diarrhea, change in bowel or urinary habits. Further denies any chest pain or shortness of breath, palpitations. Appetite has been normal. She was essentially brought to ED and recommendation of provider secondary to feeling like she has been, "foggy." While in ED CT scan of head was performed which ruled out any acute hemorrhage, did reveal age related involutional changes, chronic small vessel disease, 7 mm hypodensity in left frontal lobe. Given her age and history of cancer it was recommended she be admitted for further imaging and evaluation. Admission Exam Per Admitting Provider Temp 36.4 C L 08/18/18 08:51 Pulse 73 08/18/18 14:01 Resp 19 08/18/18 14:01 BP 184/103 H 08/18/18 14:01 Pulse Ox 97 08/18/18 14:01 Physical Exam: Gen: WD/WN, F, NAD, sitting up in bed, pleasant, conversing easily Head: Normocephalic, Atraumatic Eyes: Sclera normal, no conjunctival injection, PERRLA, EOMI ENT: Gross hearing intact, normal pharynx, mucous membranes moist Neck: supple, no adenopathy, No JVD, no bruit, Resp: Clear to auscultation b/l, no wheeze, rales, rhonchi. Normal insp/exp effort, no accessory muscle use CV: Regular rate, regular rhythm, no murmur, rub, gallop, or ectopy Abd: +BS x 4, soft, nontender, nondistended Musculoskeletal: moves extremities active rom x 4, strength intact, good browning processor strength Extremities: No edema bilaterally Skin: warm, moist, no rash, negative turgor, cap refill < 2sec Neuro: Alert and oriented x 3, speech normal, good mood/affect, cran nerve 2-12 intact grossly : deferred Principal Diagnosis stroke Discharge Data Allergies Allergy/AdvReac Type Severity Reaction Status Date / Time alcohol Allergy Unknown Unverified 08/18/18 10:16 meperidine [From Demerol] Allergy Unknown Unverified 08/18/18 10:16 ondansetron [From Zofran] Allergy Hives Unverified 08/18/18 10:16 Consultations 08/18/18 13:14 ED Decision to Admit Stat 08/18/18 13:58 Consult Neurology Routine Ordered Studies 08/18/18 09:20 CT head/brain wo con Stat 08/18/18 20:32 MR brain wo/w con Routine 08/19/18 13:39 US carotid doppler BI Routine Hospital Course (1) Stroke: (2) Closed head injury: (3) History of breast cancer: (4) History of colon cancer: (5) History of rectal cancer: (6) HTN (hypertension): (7) HLD (hyperlipidemia): (8) Depression: 77-year-old woman presenting to the emergency department via private vehicle after falling and hitting her head last week and concern and prompting by family members who noted some persistent abnormal facial expressions and reported that she did not seem quite herself in her behaviors. Lab work revealed a normal CBC and BMP within normal, INR 1.0, troponin was negative. A CT of the brain without contrast revealed no acute intracranial abnormality. Ventriculomegaly was seen and moderate white matter hypodensities were present suggesting chronic microvascular ischemic changes. There was an ill-defined 7 mm hypodensity seen about the cramer radiata in the left frontal lobe. EKG revealed normal sinus rhythm with a rate of 69 bpm. Given her symptoms, CT findings and history of cancer, she was admitted to the hospital for further workup and evaluation. Neurology was consulted. An MRI of the brain was ordered and revealed a subacute infarct in the left superior basal ganglia and centrum semi-ovale. There was no evidence of intracranial mass and there was moderate white matter disease present likely a small vessel ischemic basis. Historically the patient reported acute strokelike symptoms occurring postoperatively several days after a recent parastomal hernia repair on May 2018. She specifically reports expressive aphasia for a full day that was associated with a headache. This spontaneously resolved by the end of the weekend and she did not pursue medical consultation at that time. Then she hit her head traumatically 10 days ago and subsequently described a mental fog with symptoms consistent with a concussion. An echo with bubble study was performed revealing EF 55-60% with no evidence of ASD. A carotid ultrasound revealed No evidence of hemodynamically significant carotid stenosis. Per neurology the subacute infarct may have accounted for the event 10 days prior to arrival when she fell. Zocor was switched to Lipitor, Aspirin 81 mg and Plavix 75 mg were recommended and she will follow-up with neurology in 4 weeks. An event monitor also recommended through primary care physician to complete the workup, however, no events were noted on telemetry during her hospitalization. Total Time Total Time Spent Total Time Spent (In Minutes): 60 Total Time Includes: Examination of the Patient, Discharge Planning, Medication Reconciliation and Communication With Other Providers Discharge Plan Discharge Items Patient Disposition: Home - Self-Care Reason For Visit: MECHANICAL FALL, R/O TIA Discharge Diagnosis: stroke Condition: Good Discharge Goals: Prevent disease Activity: Resume your previous activity Non-emergency contact: Primary Care Provider Call non-emergency contact if: you have any medication questions, your symptoms worsen, your pain is not controlled and you have a fever Follow-up/Referrals: Annie Stearns MD [Physician] - Dennis Grider M.D. [Primary Care Provider] - Diet: Heart Healthy Addtl Provider Instructions: Please take all medications as prescribed on discharge list below. It is recommended that you followup with your primary care provider (PCP) within one week of discharge. It is recommended that you undergo an outpatient event monitor for 14 days to complete the workup for stroke causes. This can be obtained through your PCP during follow-up. It is recommended that you contact [facility]rology for a follow-up in 4 weeks. It was a pleasure taking care of you! Please call if you have any questions or problems. You can reach a [facility] hospitalist on duty at [facility] 24 hours a day by calling [phone]. Take care of yourself. DO Lavell Ardon Hospitalist Prescriptions: New clopidogrel 75 mg Tablet 75 mg PO QAM Qty: 30 RF: 2 atorvastatin 40 mg Tablet 40 mg PO QAM Qty: 30 RF: 2 aspirin [Ecotrin Low Strength] 81 mg Tablet,Delayed Release (Dr/Ec) 81 mg PO QAM Qty: 90 RF: 1 Continued venlafaxine 75 mg capsule,extended release 24hr 75 mg PO DAILY RF: 0 omeprazole 40 mg capsule,delayed release(DR/EC) 40 mg PO DAILY RF: 0 lorazepam 0.5 mg tablet 0.25 mg PO HS RF: 0 metoprolol succinate 25 mg tablet extended release 24 hr 25 mg PO BID RF: 0 Discontinued celecoxib 200 mg capsule 200 mg PO DAILY RF: 0 simvastatin 10 mg tablet 10 mg PO DAILY RF: 0 Stand-Alone Forms: My [facility] Discharge Orders: Discharge Order (Routine); Ordered 08/20/18 Ordered By: Margarita Vasquez Admission Data Admit Date/Time: 08/19/18 10:29 Attending Provider: Margarita Vasquez Admit Provider: Dennis Licona Primary Care Provider: Dennis Grider Service: Telemetry Medical Other Interventions: Discharge Summary Assessment (RN) Last Done: 08/20/18 10:11 DC Date/Time DO NOT enter until pt leaves facility: 08/20/18 10:45
== END 2018-08-20 10:45 | disposition home or self-care (01) | DRG 65 ==
LOC: 2N 08:47 → ED 08:47 → 2N 14:40